=== PATIENT | female | born 1975 | race American Indian/Alaskan Native ===

== ENCOUNTER 2020-06-17 10:48 | Outpatient (CLI) | payer BC ==
--- NOTE | 2020-06-17 12:52 | Magnetic Resonance Report ---
MRI cervical spine without contrast INDICATION: Shoulder pain and arm pain TECHNIQUE: Axial sagittal images FINDINGS: Alignment appears normal. Craniocervical junction appears normal. C2-C3: No spinal canal narrowing or neuroforaminal narrowing. C3-C4: No spinal canal narrowing or neuroforaminal narrowing. C4-C5: Mild uncovertebral degenerative change without spinal canal narrowing or neuroforaminal narrow ing. There is C5-C6: No spinal canal narrowing or neuroforaminal narrowing. C6-C7: No spinal canal narrowing or neuroforaminal narrowing. C7-T1: No spinal canal narrowing or neuroforaminal narrowing. IMPRESSION: No significant disc bulge, spinal canal narrowing or neuroforaminal narrowing. Signer Name: Nato Sommers MD Signed: 06/17/2020 12:48 PM Workstation Name: [id number]
== END 2020-06-17 10:49 | disposition home or self-care (01) ==
LOC: MRI 10:48
DX: M47.812 Spondylosis without myelopathy or radiculopathy, cervical region (principal)
CPT/HCPCS: 72141